=== PATIENT | female | born 1985 | race Two or more races ===

== ENCOUNTER 2019-11-13 20:54 | Emergency (ER) | payer OTHER ==
[~2019-11-13] VITALS: Ht 177.8 cm; Wt 72.6 kg
[~2019-11-13 20:54] MED LIST: CATAFLAM50 MG PO
== END 2019-11-13 22:25 | disposition home or self-care (01) ==
LOC: ER 20:54
DX: S92.492A Other fracture of left great toe, initial encounter for closed fracture (principal); S90.212A Contusion of left great toe with damage to nail, initial encounter; W22.8XXA Striking against or struck by other objects, initial encounter; Y93.89 Activity, other specified; Y92.89 Other specified places as the place of occurrence of the external cause; Y99.8 Other external cause status

== ENCOUNTER 2020-02-21 09:35 | Emergency (ER) | payer OTHER ==
[~2020-02-21] VITALS: Ht 172.7 cm; Wt 63.5 kg
[2020-02-21] MEDS ORDERED: ZYRTEC10 M3 PO (12:40)
[2020-02-21] MEDS ORDERED: ZITHROMAX500 MG PO (12:40)
== END 2020-02-21 12:50 | disposition home or self-care (01) ==
LOC: ER 09:35
DX: T78.49XA Other allergy, initial encounter (principal); X58.XXXA Exposure to other specified factors, initial encounter; Z20.828 Contact with and (suspected) exposure to other viral communicable diseases

== ENCOUNTER 2021-09-13 07:23 | Emergency (ER) | payer OTHER ==
[~2021-09-13] VITALS: Ht 177.8 cm; Wt 75.7 kg
[~2021-09-13 07:23] MED LIST changes: +ZITHROMAX500 MG PO; +ZYRTEC10 M3 PO
== END 2021-09-13 10:07 | disposition home or self-care (01) ==
LOC: ER 07:23
DX: L50.9 Urticaria, unspecified (principal)

== ENCOUNTER 2023-08-04 04:44 | Day surgery (SDC) | payer OTHER ==
[2023-08-04] MEDS ORDERED: POVIDONE-IODINE 118 ML BOTT TOP ONE ×2 (11:32→12:45)
[2023-08-04] MEDS ORDERED: ONDANSETRON HCL 2 MG/ML VIAL IV ONE (13:15)
[2023-08-04] MEDS ORDERED: IBU800 MG PO (13:24)
== END 2023-08-04 15:15 | disposition home or self-care (01) ==
LOC: CIR.AMB 04:44
PROVIDERS: ATTEND Obstetrics & Gynecology
DX: N93.8 Other specified abnormal uterine and vaginal bleeding (principal); N84.1 Polyp of cervix uteri; N70.91 Salpingitis, unspecified; R10.2 Pelvic and perineal pain